=== PATIENT | male | born 1965 | race Caucasian/White ===

== ENCOUNTER → 2016-10-09 | Outpatient (CLI) | payer BC ==
--- NOTE | 2016-10-09 16:18 | REP ---
Clinical: Pain. Recent injury. Technique: Internal rotation, external rotation, and Y view of the left shoulder. Findings: Degenerative changes at the acromioclavicular joint and glenoid are appreciated. Proximal humerus appears intact and normal. There is no evidence for acute fracture or dislocation. Impression: Degenerative changes involving the glenoid and acromioclavicular joint. No acute fracture dislocation. Signed by Edward Heath MD 10/09/2016 04:09 P
== END ==
LOC: M WUC 15:38
PROVIDERS: ATTEND Physician Assistant
DX: S40.012A Contusion of left shoulder, initial encounter (principal); X58.XXXA Exposure to other specified factors, initial encounter; Y92.89 Other specified places as the place of occurrence of the external cause

== ENCOUNTER → 2019-11-19 | Outpatient (CLI) | payer OTHER ==
--- NOTE | 2019-11-19 13:35 | REP ---
RIGHT KNEE, FIVE VIEWS: Five views of the right knee performed. There is no acute fracture or dislocation. There is mild medial joint space narrowing with subchondral sclerosis and spurring. There is a small joint effusion. There is mild lateral patellofemoral compartment narrowing and subchondral sclerosis. IMPRESSION: Mild degenerative changes. Small joint effusion. No acute fracture or dislocation. Electronically Signed by Matti Fernandez MD 11/19/2019 02:27 P
--- NOTE | 2019-11-19 13:37 | REP ---
LEFT CALCANEUS: Two views of the left calcaneus are performed. No acute fracture or dislocation is seen. There is a small inferior calcaneal spur. IMPRESSION: No acute fracture or dislocation. Electronically Signed by Matti Fernandez MD 11/19/2019 02:27 P
== END ==
LOC: M LRY 11:15
PROVIDERS: ATTEND Physician Assistant
DX: M25.469 Effusion, unspecified knee (principal); M77.32 Calcaneal spur, left foot

== ENCOUNTER → 2021-11-28 | Outpatient (REF) | payer OTHER ==
[2021-11-28 14:30] LABS: SOURCE, BODY FLUID RT KNEE; SYNOVIAL FLUID COLOR PALE YELLOW (COLORLESS)
[2021-11-28 14:31] LABS: CRYSTALS, BODY FLUID NONE SEEN (NONE SEEN); SOURCE, BODY FLUID CRYSTALS RT KNEE
[2021-11-28 14:40] LABS: SOURCE, BODY FLUID GLUCOSE RT KNEE
== END ==
LOC: M LAB REF 13:42
PROVIDERS: ATTEND Physician Assistant
DX: M25.461 Effusion, right knee (principal)

== ENCOUNTER → 2022-08-01 | Outpatient (CLI) | payer OTHER | LOC: M PAIN 08:00 | PROVIDERS: ATTEND Nurse Practitioner Family | DX: M25.561 Pain in right knee (principal); G89.29 Other chronic pain; E11.9 Type 2 diabetes mellitus without complications; I10 Essential (primary) hypertension; J44.9 Chronic obstructive pulmonary disease, unspecified; G47.33 Obstructive sleep apnea (adult) (pediatric); F17.210 Nicotine dependence, cigarettes, uncomplicated; Z88.8 Allergy status to other drugs, medicaments and biological substances; E66.01 Morbid (severe) obesity due to excess calories; Z68.42 Body mass index [BMI] 45.0-49.9, adult; Z79.82 Long term (current) use of aspirin; Z79.84 Long term (current) use of oral hypoglycemic drugs; Z79.899 Other long term (current) drug therapy ==

== ENCOUNTER → 2022-09-19 | Outpatient (CLI) | payer OTHER | LOC: M RAD 13:18 | PROVIDERS: ATTEND Nurse Practitioner Family | DX: M25.561 Pain in right knee (principal) ==

== ENCOUNTER → 2022-10-02 | Outpatient (CLI) | payer OTHER | LOC: M PAIN 10:15 | PROVIDERS: ATTEND Nurse Practitioner Family | DX: M25.561 Pain in right knee (principal); G89.29 Other chronic pain; E11.9 Type 2 diabetes mellitus without complications; I10 Essential (primary) hypertension; J44.9 Chronic obstructive pulmonary disease, unspecified; G47.33 Obstructive sleep apnea (adult) (pediatric); F17.210 Nicotine dependence, cigarettes, uncomplicated; Z88.8 Allergy status to other drugs, medicaments and biological substances; E66.01 Morbid (severe) obesity due to excess calories; Z68.41 Body mass index [BMI] 40.0-44.9, adult; Z79.82 Long term (current) use of aspirin; Z79.84 Long term (current) use of oral hypoglycemic drugs; Z79.899 Other long term (current) drug therapy ==

== ENCOUNTER → 2022-12-01 | Outpatient (CLI) | payer OTHER | LOC: M PAIN 10:30 | PROVIDERS: ATTEND Nurse Practitioner Family | DX: M25.561 Pain in right knee (principal); G89.29 Other chronic pain; I10 Essential (primary) hypertension; E78.2 Mixed hyperlipidemia; J44.9 Chronic obstructive pulmonary disease, unspecified; G47.33 Obstructive sleep apnea (adult) (pediatric); M25.511 Pain in right shoulder; M25.512 Pain in left shoulder; F17.210 Nicotine dependence, cigarettes, uncomplicated; Z79.84 Long term (current) use of oral hypoglycemic drugs; Z79.82 Long term (current) use of aspirin; Z79.899 Other long term (current) drug therapy; Z88.8 Allergy status to other drugs, medicaments and biological substances ==

== ENCOUNTER → 2022-12-17 | Outpatient (REF) | LOC: M PLAIMG 12:13 | PROVIDERS: ATTEND Internal Medicine | DX: Z11.52 Encounter for screening for COVID-19 (principal) ==

== ENCOUNTER → 2023-02-27 | Outpatient (CLI) | payer OTHER | LOC: M PAIN 09:00 | PROVIDERS: ATTEND Nurse Practitioner Family | DX: M17.11 Unilateral primary osteoarthritis, right knee (principal); G89.29 Other chronic pain; M25.561 Pain in right knee; I10 Essential (primary) hypertension; E78.2 Mixed hyperlipidemia; J44.9 Chronic obstructive pulmonary disease, unspecified; G47.33 Obstructive sleep apnea (adult) (pediatric); M25.511 Pain in right shoulder; M25.512 Pain in left shoulder; F17.210 Nicotine dependence, cigarettes, uncomplicated; Z79.84 Long term (current) use of oral hypoglycemic drugs; Z79.85 Long-term (current) use of injectable non-insulin antidiabetic drugs; Z79.82 Long term (current) use of aspirin; Z79.899 Other long term (current) drug therapy; Z88.8 Allergy status to other drugs, medicaments and biological substances ==

== ENCOUNTER → 2023-04-16 | Outpatient (CLI) | payer OTHER | LOC: M PAIN 11:15 | PROVIDERS: ATTEND Nurse Practitioner Family | DX: M17.11 Unilateral primary osteoarthritis, right knee (principal); G89.29 Other chronic pain; M25.561 Pain in right knee; E11.9 Type 2 diabetes mellitus without complications; G47.33 Obstructive sleep apnea (adult) (pediatric); J44.9 Chronic obstructive pulmonary disease, unspecified; I10 Essential (primary) hypertension; F17.210 Nicotine dependence, cigarettes, uncomplicated; Z88.8 Allergy status to other drugs, medicaments and biological substances; E66.01 Morbid (severe) obesity due to excess calories; Z68.41 Body mass index [BMI] 40.0-44.9, adult; Z79.82 Long term (current) use of aspirin; Z79.84 Long term (current) use of oral hypoglycemic drugs; Z79.85 Long-term (current) use of injectable non-insulin antidiabetic drugs; Z79.899 Other long term (current) drug therapy ==

== ENCOUNTER → 2023-08-04 | Outpatient (CLI) | payer OTHER | LOC: M PAIN 10:00 | PROVIDERS: ATTEND Nurse Practitioner Family | DX: M17.11 Unilateral primary osteoarthritis, right knee (principal); G89.29 Other chronic pain; M25.561 Pain in right knee; F17.210 Nicotine dependence, cigarettes, uncomplicated; Z79.84 Long term (current) use of oral hypoglycemic drugs; Z79.82 Long term (current) use of aspirin; Z79.899 Other long term (current) drug therapy; Z88.8 Allergy status to other drugs, medicaments and biological substances ==